=== PATIENT | female | born 1965 | race Caucasian/White ===

== ENCOUNTER 2017-09-22 17:44 | Emergency (ER) | payer OTHER, BC ==
[~2017-09-22] VITALS: Ht 157.5 cm; Wt 92.5 kg
[~2017-09-22 17:44] MED LIST: AMARYL4 MG PO; BENICAR5 MG PO; GLUCOPHAGE850 MG PO; LEXAPRO20 MG PO; LIPITOR20 MG PO; NEURONTIN600 MG PO; NYSTOP60 GM TP; WELLBUTRIN XL150 MG PO
[2017-09-22] MEDS ORDERED: NAPROSYN500 MG PO (20:30)
[2017-09-22] MEDS ORDERED: FLEXERIL10 MG PO (20:30)
[2017-09-22 20:49] VITALS: BP 137/77
== END 2017-09-22 20:50 | disposition home or self-care (01) ==
LOC: EME 17:44
DX: S40.011A Contusion of right shoulder, initial encounter (principal); Y04.8XXA Assault by other bodily force, initial encounter; Y99.0 Civilian activity done for income or pay; Y07.59 Other non-family member, perpetrator of maltreatment and neglect; Z88.8 Allergy status to other drugs, medicaments and biological substances
CPT/HCPCS: 73030; 99281; 99284

== ENCOUNTER 2018-05-06 00:49 | Inpatient (IN) | payer OTHER ==
[~2018-05-06] VITALS: Ht 157.5 cm; Wt 91.2 kg
[~2018-05-06 00:49] MED LIST changes: +FLEXERIL10 MG PO; +NAPROSYN500 MG PO
[2018-05-06 01:47] LABS: HEMATOCRIT 35.2 % (36.0-46.0); MCH 28.9 PG (29.0-34.0); MCHC 34.1 G/DL (30.0-36.0); MCV 84.8 FL (83-99); PLATELET COUNT 219 K/uL (156-360); RBC DIS.WIDTH-CV 12.7 % (11.8-14.6); RBC DIS.WIDTH-SD 38.7 % (39-53); RED BLOOD COUNT 4.15 M/uL (3.80-5.20); WHITE BLOOD COUNT 13.1 K/uL (4.1-10.2)
[2018-05-06 01:56] LABS: ALBUMIN 3.6 g/dL (3.2-4.8); CHLORIDE 105 mEq/L (99-109); POTASSIUM 3.8 mEq/L (3.7-5.4); SODIUM 140 mEq/L (136-147)
[2018-05-06 01:57] LABS: MAGNESIUM 1.3 mg/dL (1.3-2.7)
[2018-05-06 01:59] LABS: GLUCOSE 281 mg/dL (70-99); TOTAL PROTEIN 6.2 g/dL (6.4-8.3)
[2018-05-06 02:01] LABS: TOTAL BILIRUBIN 0.5 mg/dL (0.0-1.0)
[2018-05-06 02:02] LABS: ALKALINE PHOSPHATASE 119 IU/L (3-129); PHOSPHORUS 2.7 mg/dL (2.5-4.9)
[2018-05-06 02:03] LABS: CREATININE 0.8 mg/dL (0.6-1.3); GFR ESTIMATE (CALCULATED) > 59 mL/min/
[2018-05-06 02:04] LABS: AST (GOT) 13 IU/L (2-34); UREA NITROGEN (BUN) 14 mg/dL (9-23)
[2018-05-06 02:06] LABS: ALT (GPT) 13 IU/L (3-49); LIPASE 7 U/L (1.0-51.0)
[2018-05-06 02:12] LABS: TROP-I INTERPRETATION NEGATIVE; TROPONIN-I 0.09 ng/mL (0.0-0.30)
[2018-05-06 06:45] VITALS: BP 113/59
[2018-05-06 08:16] VITALS: BP 127/71
[2018-05-06 12:25] VITALS: BP 158/79
[2018-05-06] MEDS ORDERED: ACID CONTROL150 MG PO (14:14)
[2018-05-06] MEDS ORDERED: ASPIR 8181 M1 PO (14:14)
[2018-05-06] MEDS ORDERED: HYDROXYZINE HCL25 MG PO (14:15)
[2018-05-06] MEDS ORDERED: LEVEMIR FL100 UNIT/1 SC (14:16)
[2018-05-06 16:21] VITALS: BP 138/67
[2018-05-06 19:32] VITALS: BP 145/67
[2018-05-06 23:23] VITALS: BP 131/64
[2018-05-07 07:28] LABS: BASOPHIL (%) 0.3 % (0-1); EOSINOPHIL (%) 0.4 % (0-5); HEMATOCRIT 32.8 % (36.0-46.0); IMMATURE GRANULOCYTE (%) 0.5 % (0.0-0.7); LYMPHOCYTE (%) 6.1 % (15-42); LYMPHOCYTE COUNT 0.5 K/uL (1.0-2.8); MCH 28.6 PG (29.0-34.0); MCHC 33.5 G/DL (30.0-36.0); MCV 85.2 FL (83-99); MONOCYTE COUNT 0.7 K/uL (0-0.8); NEUTROPHIL (%) 82.7 % (45-76); NEUTROPHIL COUNT 6.2 K/uL (1.8-6.4); PLATELET COUNT 162 K/uL (156-360); RBC DIS.WIDTH-CV 12.5 % (11.8-14.6); RBC DIS.WIDTH-SD 38.4 % (39-53); RED BLOOD COUNT 3.85 M/uL (3.80-5.20); WHITE BLOOD COUNT 7.4 K/uL (4.1-10.2)
[2018-05-07 07:43] LABS: CHLORIDE 107 MEQ/L (99-109); CREATININE 0.6 MG/DL (0.6-1.3); GFR ESTIMATE (CALCULATED) > 59 mL/min/; POTASSIUM 3.7 MEQ/L (3.7-5.4); SODIUM 140 MEQ/L (136-147); UREA NITROGEN (BUN) 11 mg/dL (9-23)
[2018-05-07 07:44] LABS: GLUCOSE 119 mg/dL (70-99)
[2018-05-07 08:20] VITALS: BP 143/67
[2018-05-07 16:03] VITALS: BP 150/74
[2018-05-08] VITALS: BP 136/75
[2018-05-08 08:11] VITALS: BP 161/76
[2018-05-08 16:14] VITALS: BP 177/81
[2018-05-08 23:26] VITALS: BP 163/77
[2018-05-09 08:17] VITALS: BP 171/81
[2018-05-09] MEDS ORDERED: AUGMENTIN875 MG PO (11:17)
[2018-05-09] MEDS ORDERED: TYLENOL REGULA325 MG PO (11:22)
[2018-05-09] MEDS ORDERED: IBUPROFEN600 MG PO (11:22)
== END 2018-05-09 12:05 | disposition home or self-care (01) | DRG 603 ==
LOC: EME 00:49 → 3EAST 04:25 → EDOF 04:25 → ENRESERV 04:28 → 3EAST 06:09
PROVIDERS: Emergency Medicine; Hospitalist
DX: L03.211 Cellulitis of face (principal); R78.81 Bacteremia; L02.01 Cutaneous abscess of face; B95.4 Other streptococcus as the cause of diseases classified elsewhere; E11.65 Type 2 diabetes mellitus with hyperglycemia; S02.5XXA Fracture of tooth (traumatic), initial encounter for closed fracture; I10 Essential (primary) hypertension; E78.5 Hyperlipidemia, unspecified; K21.9 Gastro-esophageal reflux disease without esophagitis; F41.9 Anxiety disorder, unspecified; F32.9 Major depressive disorder, single episode, unspecified; F17.210 Nicotine dependence, cigarettes, uncomplicated; Z91.14 Patient's other noncompliance with medication regimen; Z79.4 Long term (current) use of insulin; Z79.82 Long term (current) use of aspirin
CPT/HCPCS: 70487; 71045; 80048; 80053; 82803; 82948; 83605; 83690; 83735; 83930; 84100; 84484; 85025; 85027; 87040; 87641; 87801; 93005; 94760; 94799; 99281; 99285; J0295; J1650; J1815; J2405; J2543; J3010; J7030; J7050